=== PATIENT | female | born 1975 | race Caucasian/White ===

== ENCOUNTER 2016-07-31 21:48 | Emergency (ER) | payer OTHER ==
[~2016-07-31] VITALS: Ht 175.3 cm; Wt 104.3 kg
[2016-07-31] MEDS ORDERED: BENA20TA2 PO (21:56)
[2016-07-31] MEDS ORDERED: HYDR12.55 PO (21:56)
--- NOTE | 2016-07-31 22:32 | NUR ---
Patient discharged to home in stable conditon. Written and verbal after care instructions given. Patient verbalizes understanding of instructions. Ambulated from ER with stable gait. All belongings with patient.
[2016-07-31 22:34] VITALS: BP 121/74
== END 2016-07-31 22:35 | disposition home or self-care (01) ==
LOC: ER 21:48
DX: S61.012A Laceration without foreign body of left thumb without damage to nail, initial encounter (principal); I10 Essential (primary) hypertension; W45.8XXA Other foreign body or object entering through skin, initial encounter; Y93.89 Activity, other specified; Y99.8 Other external cause status; Y92.89 Other specified places as the place of occurrence of the external cause
CPT/HCPCS: 12001; 99283; A4663